=== PATIENT | male | born 2000 | race Caucasian/White ===

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

== ENCOUNTER 2020-09-07 22:10 | Emergency (ER) | payer MEDICAID ==
[~2020-09-07] VITALS: Ht 188 cm; Wt 83.5 kg
[2020-09-07 22:42] VITALS: Ht 188 cm; Wt 83.5 kg
[2020-09-08 00:12] VITALS: BP 119/71
== END 2020-09-08 00:12 | disposition home or self-care (01) ==
LOC: ED 22:10
DX: I10 Essential (primary) hypertension (principal); R20.2 Paresthesia of skin